=== PATIENT | male | born 1995 | race Caucasian/White ===

== ENCOUNTER 2022-09-26 06:42 | Emergency (ER) | payer OTHER, SELFPAY | END 2022-09-26 07:34 | disposition home or self-care (01) | LOC: NAV ERS 06:42 | DX: R07.89 Other chest pain (principal); K31.84 Gastroparesis; F17.290 Nicotine dependence, other tobacco product, uncomplicated ==

== ENCOUNTER 2022-10-19 08:07 | Emergency (ER) | payer OTHER ==
[2022-10-19] MEDS ORDERED: Lidocaine 1% (PF) 30 ML VIAL ONE (08:34)
[2022-10-19] MEDS ORDERED: Boostrix 0.5 ML (Tdap) VIAL (>/=7 yrs of age) ONE (08:42)
[2022-10-19] MEDS ORDERED: Bacitracin 1 PK ONE (09:03)
== END 2022-10-19 09:18 | disposition home or self-care (01) ==
LOC: NAV ERS 08:07
DX: S61.211A Laceration without foreign body of left index finger without damage to nail, initial encounter (principal); F17.290 Nicotine dependence, other tobacco product, uncomplicated; Z23 Encounter for immunization; W26.9XXA Contact with unspecified sharp object(s), initial encounter
CPT/HCPCS: 12002; 90471; 90715; J2001